=== PATIENT | female | born 1990 | race Caucasian/White ===

== ENCOUNTER 2020-03-07 13:07 | Emergency (ER) | payer MEDICAID ==
--- NOTE | 2020-03-07 13:41 | ER Document Report ---
ED Medical Screen (RME) - General Chief Complaint: Swelling Stated Complaint: LEG PAIN, BODY SWELLING,RASH Time Seen by Provider: 03/07/20 13:28 Primary Care Provider: GABBY MARTINI MD [Primary Care Provider] - Follow up as needed Mode of Arrival: Ambulatory Information source: Patient Notes: 30-year-old female presented to ED for peripheral edema x3 to 4 months. She has been going to her primary care doctor. He did prescribe her Lasix 40 mg daily. She has been taking that and she still gaining weight every time she goes to see him. She is alert oriented respirations regular nonlabored speaking in full sentences. She states she started developing a rash on her left lower leg about January 30. She has been back to see him since then. She states it is very itchy and she has been taking Benadryl pills and cream and using cortisone cream with no relief. She does have a history of chronic back pain and ADD. She does smoke half pack a day drinks maybe monthly. She is on control pills. Patient is alert oriented respirations regular nonlabored speaking in full sentence. I have greeted and performed a rapid initial assessment of this patient. A comprehensive ED assessment and evaluation of the patient, analysis of test results and completion of medical decision making process will be conducted by an additional ED providers. - Related Data Allergies/Adverse Reactions: ibuprofen Adverse Reaction (Verified 03/07/20 13:27) Home Medications: Adderal. Lasix Past Medical History - Social History Chew tobacco use (# tins/day): No Frequency of alcohol use: None Drug Abuse: None Past Surgical History: Reports: Hx Appendectomy - Immunizations Hx Diphtheria, Pertussis, Tetanus Vaccination: Yes Physical Exam - Vital signs Vitals: Temp Pulse Resp BP Pulse Ox 98.4 F 99 20 167/84 H 100 03/07/20 13:13 03/07/20 13:13 03/07/20 13:13 03/07/20 13:13 03/07/20 13:13 Course - Vital Signs Vital signs: Temp Pulse Resp BP Pulse Ox 98.4 F 99 20 167/84 H 100 03/07/20 13:13 03/07/20 13:13 03/07/20 13:13 03/07/20 13:13 03/07/20 13:13 Doctor's Discharge - Discharge Referrals: GABBY MARTINI MD [Primary Care Provider] - Follow up as needed
[2020-03-07 14:33] LABS: APPEARANCE,URINE CLEAR; BILIRUBIN,URINE NEGATIVE (NEGATIVE); COLOR,URINE STRAW; GLUCOSE, URINE NEGATIVE (NEGATIVE); KETONES,URINE NEGATIVE (NEGATIVE); LEUKOCYTE ESTERASE,URINE NEGATIVE (NEGATIVE); NITRITE,URINE NEGATIVE (NEGATIVE); PROTEIN,URINE NEGATIVE (NEGATIVE); URINE SPECIFIC GRAVITY 1.005; UROBILINOGEN,URINE NEGATIVE mg/dL (<2.0)
[2020-03-07 14:33] LABS: ABSOLUTE EOSINOPHILS # (AUTO) 0.4 10^3/uL (0.0-0.6); ABSOLUTE LYMPHOCYTES (AUTO) 2.2 10^3/uL (0.5-4.7); ABSOLUTE MONOCYTES (AUTO) 0.7 10^3/uL (0.1-1.4); ABSOLUTE NEUT (AUTO) 5.1 10^3/uL (1.7-8.2); BASOPHILS % (AUTO) 0.4 % (0-2); EOSINOPHILS % (AUTO) 4.2 % (0-6); HEMATOCRIT 35.2 % (36.0-47.0); HEMOGLOBIN 12.1 g/dL (12.0-15.5); LYMPHOCYTES % (AUTO) 26.2 % (13-45); MEAN CORPUSCULAR HEMOGLOBIN 29.5 pg (27.0-33.4); MEAN CORPUSCULAR HGB CONC 34.4 g/dL (32.0-36.0); MEAN CORPUSCULAR VOLUME 86 fl (80-97); MONOCYTES % (AUTO) 8.6 % (3-13); PLATELET COUNT 348 10^3/uL (150-450); RED BLOOD COUNT 4.09 10^6/uL (3.72-5.28); RED CELL DISTRIBUTION WIDTH 12.8 % (11.5-14.0); SEGMENTED NEUTROPHILS % (AUTO) 60.6 % (42-78); TOTAL CELLS COUNTED % (AUTO) 100 %; WHITE BLOOD COUNT 8.4 10^3/uL (4.0-10.5)
[2020-03-07 15:01] LABS: NT PRO BNP 142 pg/mL (<125)
[2020-03-07 15:02] LABS: TROPONIN I < 0.012 ng/mL
[2020-03-07 15:08] LABS: ALBUMIN 4.4 g/dL (3.5-5.0); ALKALINE PHOSPHATASE 107 U/L (38-126); ANION GAP 10 (5-19); ASPARTATE AMINO TRANSFERASE 36 U/L (14-36); BILIRUBIN,TOTAL 0.3 mg/dL (0.2-1.3); BLOOD UREA NITROGEN 13 mg/dL (7-20); CALCIUM 9.4 mg/dL (8.4-10.2); CARBON DIOXIDE 27 mmol/L (22-30); CHLORIDE 99 mmol/L (98-107); CREATINE KINASE 177 U/L (30-135); GLUCOSE 103 mg/dL (75-110); TOTAL PROTEIN 7.7 g/dL (6.3-8.2)
--- NOTE | 2020-03-07 15:09 | EKG REPORT ---
SEVERITY:- ABNORMAL ECG - SINUS RHYTHM PROLONGED QT INTERVAL : Confirmed by: Amando Marie MD 07-Mar-2020 15:08:43
--- NOTE | 2020-03-07 15:11 | RADIOLOGY REPORT (SQ) ---
EXAM DESCRIPTION: CHEST 2 VIEWS IMAGES COMPLETED DATE/TIME: 03/07/2020 3:03 pm REASON FOR STUDY: Pedal edema COMPARISON: None. EXAM PARAMETERS: NUMBER OF VIEWS: two views TECHNIQUE: Digital Frontal and Lateral radiographic views of the chest acquired. RADIATION DOSE: NA LIMITATIONS: none FINDINGS: LUNGS AND PLEURA: No opacities, masses or pneumothorax. No pleural effusion. MEDIASTINUM AND HILAR STRUCTURES: No masses or contour abnormalities. HEART AND VASCULAR STRUCTURES: Heart normal size. No evidence for failure. BONES: No acute findings. HARDWARE: None in the chest. OTHER: No other significant finding. IMPRESSION: NO ACUTE RADIOGRAPHIC FINDING IN THE CHEST. TECHNICAL DOCUMENTATION: JOB ID: [id number] 2010 [employer]- All Rights Reserved Reading location - IP/workstation name: [email or web address]
[2020-03-07] MEDS ORDERED: HYDROXYZINE HCL INJ 50 MG/1 ML VIAL IM ONE (16:21)
--- NOTE | 2020-03-07 16:22 | ER Document Report ---
ED General - General Chief Complaint: Swelling Stated Complaint: LEG PAIN, BODY SWELLING,RASH Time Seen by Provider: 03/07/20 13:28 Primary Care Provider: GABBY MARTINI MD [NO LOCAL MD] - Follow up as needed Mode of Arrival: Ambulatory Information source: Patient Notes: This 30-year-old woman presents to the emergency department with a 5-month history of swelling involving her lower extremities. States she saw her primary care doctor who placed her on Lasix 40 mg daily. States that she is seeing no improvement in her symptoms. She went back to see her primary doctor he attempted to refer her to a tagman, however, the insurance denied the referral. She has now developed itching in the left leg with associated areas of redness. The redness has extended from her feet up to the medial thigh. She denies other associated medical problems. - Related Data Allergies/Adverse Reactions: ibuprofen Adverse Reaction (Verified 03/07/20 13:27) Home Medications: Adderal. Lasix Past Medical History - General Information source: Patient - Social History Smoking Status: Current Every Day Smoker Chew tobacco use (# tins/day): No Frequency of alcohol use: None Drug Abuse: None Family History: Reviewed & Not Pertinent Patient has homicidal ideation: No Past Surgical History: Reports: Hx Appendectomy - Immunizations Hx Diphtheria, Pertussis, Tetanus Vaccination: Yes Review of Systems - Review of Systems Notes: Constitutional: Negative for fever. HENT: Negative for sore throat. Eyes: Negative for visual changes. Cardiovascular: Negative for chest pain. Respiratory: Negative for shortness of breath. Gastrointestinal: Negative for abdominal pain, vomiting or diarrhea. Genitourinary: Negative for dysuria. Musculoskeletal: + bilateral lower extremity swelling, + itching left lower extremity Skin: Negative for rash. Neurological: Negative for headaches, weakness or numbness. 10 point ROS negative except as marked above and in HPI. Physical Exam - Vital signs Vitals: Temp Pulse Resp BP Pulse Ox 98.4 F 99 20 167/84 H 100 03/07/20 13:13 03/07/20 13:13 03/07/20 13:13 03/07/20 13:13 03/07/20 13:13 - Notes Notes: PHYSICAL EXAMINATION: Physical Exam: General: Well-nourished well-developed 30-year-old female in no acute distress HEENT: NC/AT, pupils equal round and reactive to light, MM moist,nares clear, oropharynx clear, airway patent Neck: supple, no adenopathy, no masses. Good range of motion Lungs: clear, no wheezing, no rales no rhonchi CVS: Regular rate and rhythm no murmur gallop or rub Abdomen: Soft, active, nontender, no masses, no hepatosplenomegaly Ext: Lateral lower extremity edema, left greater than right, erythema in the right lower extremity with + pruritus, mild tenderness Neuro: Alert and responsive, moving all 4 extremities on command, cranial nerves intact, no focal findings Skin: Intact no open lesions, no rash PSYCH: Normal mood, normal affect. Course - Vital Signs Vital signs: Temp Pulse Resp BP Pulse Ox 98.4 F 99 20 167/84 H 100 03/07/20 13:13 03/07/20 13:13 03/07/20 13:13 03/07/20 13:13 03/07/20 13:13 - Laboratory Result Diagrams: 03/07/20 14:18 03/07/20 14:18 Laboratory results interpreted by me: 03/07/20 03/07/20 03/07/20 14:18 14:18 14:18 Hct 35.2 L Sodium 136.0 L Creatine Kinase 177 H NT-Pro-B Natriuret Pep 142 H 03/07/20 16:55 I have reviewed laboratory data and used this information for the treatment decisions regarding the patient. - Diagnostic Test Radiology reviewed: Image reviewed, Reports reviewed - Chest x-ray: No acute cardiopulmonary findings. - EKG Interpretation by Me EKG shows normal: Sinus rhythm, [place] - Normal, Intervals - Prolonged QT i nterval, QT 416, QTc 501., QRS Complexes - Normal, ST-T Waves - No acute ST or T wave abnormalities, no ischemic changes. Rate: Normal - Rate is 87. Discharge - Discharge Clinical Impression: Peripheral edema, Swelling of lower extremity, Stasis dermatitis of left lower extremity due to peripheral venous hypertension, Cellulitis of left leg Condition: Good Disposition: HOME, SELF-CARE Instructions: Cellulitis ([facility]), Edema, Peripheral ([facility]) Additional Instructions: You are seen in the emergency department today with swelling in your lower extremities and redness itching and pain in the left leg. You are diagnosed with peripheral edema and stasis dermatitis with early cellulitis of the left leg. Please take the medications as prescribed. Please schedule a follow-up appointment with your primary care doctor this week for recheck. The use of JACOBY compression stockings will help to decrease the swelling., Elevate your legs, use the medications as prescribed. HOME CARE INSTRUCTIONS & INFORMATION: Thank you for choosing us for your medical needs. We hope you're satisfied with the care you received. After you leave, you must properly care for your problem and, at the same time, observe its progress. Any condition can change. Some illnesses can change rapidly over hours or days. If your condition worsens, return to the Emergency Department or see your physician promptly. ABOUT YOUR X-RAYS AND EKG'S: If you had an EKG or X-rays taken, they have been read by the Emergency Physician. The X-rays and EKG's will also be read by a Radiologist or Grout Worker within 24 hours. If discrepancies are noted, you will be notified by telephone. Please be certain the ED has a correct telephone number & address where you can be reached. Also, realize that some fractures or abnormalities do not show up on initial X-rays. If your symptoms continue, see your physician. ABOUT YOUR LABORATORY TEST: If you had laboratory tests, the results have been reviewed by the Emergency Physician. Some test results (for example cultures) may not be available for several days. You will be contacted if any test result shows you need additional treatment. Please be certain the ED has a correct telephone number and address where you can be reached. ABOUT YOUR MEDICATIONS: You will receive instructions on how to take your medicine on the prescription label you receive. Additional information may be provided by the Pharmacy. If you have questions afterwards, call the ED for clarification or further instructions. Some prescribed medications may cause drowsiness. Do not perform tasks such as driving a car or operating machinery without consulting your Pharmacist. If you feel you need a refill of pain medication, your condition will need re-evaluation. Please do not call for a refill of any medication. ABOUT YOUR SIGNATURE: Signature of this document acknowledges to followin. Understanding that you received emergency treatment and that you may be released before al medical problems are known or treated. Please be certain the ED has a correct phone number & address where you can be reached. 2. Acknowledgement that you will arrange for follow-up care as recommended. 3. Authorization for the Emergency Physician to provide information to your follow-up Physician in order to maximize your care. AT ANY TIME, IF YOUR SYMPTOMS CHANGE SIGNIFICANTLY OR WORSEN OR YOU DEVELOP NEW SYMPTOMS, RETURN TO THE EMERGENCY DEPARTMENT IMMEDIATELY FOR RE-EVALUATION. OUR GOAL IS TO PROVIDE EXCELLENT MEDICAL CARE! WE HOPE THAT WE HAVE MET YOUR EXPECTATIONS DURING YOUR EMERGENCY DEPARTMENT VISIT AND THAT YOU FEEL YOU HAVE RECEIVED EXCELLENT CARE! Prescriptions: Tramadol HCl [Ultram 50 mg Tablet] 50 mg PO Q4HP PRN #12 tab PRN Reason: Bumetanide [Bumex 1 mg Tablet] 1 mg PO DAILY #10 tablet Cephalexin Monohydrate [Keflex 500 mg Capsule] 500 mg PO Q8 10 Days #30 capsule Hydroxyzine Pamoate [Vistaril 25 mg Capsule] 25 mg PO Q6H #30 capsule Referrals: GABBY MARTINI MD [NO LOCAL MD] - Follow up as needed
[2020-03-07 17:30] VITALS: BP 138/84
== END 2020-03-07 17:22 | disposition home or self-care (01) ==
LOC: ER 13:07
DX: I87.332 Chronic venous hypertension (idiopathic) with ulcer and inflammation of left lower extremity (principal); L03.116 Cellulitis of left lower limb; R60.0 Localized edema; M79.605 Pain in left leg; R21 Rash and other nonspecific skin eruption; F17.200 Nicotine dependence, unspecified, uncomplicated; Z88.8 Allergy status to other drugs, medicaments and biological substances; Z79.899 Other long term (current) drug therapy
CPT/HCPCS: 93005; 99284; 96372; 36415; 82550; 84702; 85025; 80053; 81001; 84484; 83880; 71046; 93010; J3410

== ENCOUNTER → 2020-07-27 | Outpatient (CLI) | payer MEDICAID ==
--- NOTE | 2020-07-27 16:00 | RADIOLOGY REPORT (SQ) ---
EXAM DESCRIPTION: VENOUS BILATERAL LOWER IMAGES COMPLETED DATE/TIME: 07/27/2020 3:50 pm REASON FOR STUDY: BLE SWELLING/PAIN I82.401 ACUTE EMBOLISM AND THOMBOS UNSP DEEP VEINS OF R LOW COMPARISON: None. TECHNIQUE: Dynamic and static bazan scale and color images acquired of both lower extremity venous sy stems. Selected spectral images acquired with additional compression and augmentation maneuvers. Imag es stored on PACS. LIMITATIONS: Body habitus and lower extremity swelling. FINDINGS: RIGHT LEG COMMON FEMORAL AND FEMORAL: Normal phasicity, compression and augmentation. No visualized echogenic m aterial on bazan scale. No defects on color images. POPLITEAL: Normal compression and augmentation. No visualized echogenic material on bazan scale. No de fects on color images. CALF VESSELS: Normal compression and augmentation. No visualized echogenic material on bazan scale. No defects on color image. GSV AND SSV: Normal compression. No visualized echogenic material on bazan scale. No defects on color images. ANY DEEP VENOUS INSUFFICIENCY: Not evaluated. ANY EVIDENCE OF POPLITEAL CYST: No. OTHER: No other significant finding. LEFT LEG COMMON FEMORAL AND FEMORAL: Normal phasicity, compression and augmentation. No visualized echogenic m aterial on bazan scale. No defects on color images. POPLITEAL: Normal compression and augmentation. No visualized echogenic material on bazan scale. No de fects on color images. CALF VESSELS: Normal compression and augmentation. No visualized echogenic material on bazan scale. No defects on color images. GSV AND SSV: Normal compression. No visualized echogenic material on bazan scale. No defects on color images. ANY DEEP VENOUS INSUFFICIENCY: Not evaluated. ANY EVIDENCE POPLITEAL CYST: No. OTHER: No other significant finding. IMPRESSION: NO EVIDENCE DVT OR SVT IN EITHER LEG. TECHNICAL DOCUMENTATION: JOB ID: [id number] 2010 [employer]- All Rights Reserved Reading location - IP/workstation name: [email or web address]
== END ==
LOC: SP 14:40
PROVIDERS: ATTEND Podiatrist Foot & Ankle Surgery
DX: I82.401 Acute embolism and thrombosis of unspecified deep veins of right lower extremity (principal)
CPT/HCPCS: 93970